=== PATIENT | female | born 1970 | race Caucasian/White ===

== ENCOUNTER → 2017-07-05 | Outpatient (CLI) | payer BC ==
--- NOTE | 2017-07-05 18:20 | RAD ---
CT HEAD WO CONTRAST History: Trauma to head today, hit by tree branch, headache, history of traumatic brain injury in 2004 Comparison: None. Technique: Noncontrast [address] images were acquired from the skull base to the vertex. Exposure: One or more of the following individualized dose reduction techniques were utilized for this examination: 1. Automated exposure control 2. Adjustment of the mA and/or kV according to patient size 3. Use of iterative reconstruction technique. Findings: No acute extra-axial or parenchymal hemorrhage is identified. There is no significant intra-axial mass effect, midline shift, or extra-axial fluid collection. The christensen-white differentiation of the major vascular territories is preserved. The ventricles, sulci, and cisterns are within normal limits in size and configuration. The mastoid air cells and the visualized paranasal sinuses are aerated. No acute calvarial abnormality is identified. Impression: 1. No acute intracranial abnormality is identified. Electronically signed by: Pee Vasquez MD (07/05/2017 6:16 PM) [facility]
== END | disposition home or self-care (01) ==
LOC: RAD 17:44
PROVIDERS: ATTEND Family Medicine
DX: S09.90XA Unspecified injury of head, initial encounter (principal); R51 Headache; Z87.820 Personal history of traumatic brain injury; X58.XXXA Exposure to other specified factors, initial encounter; Y93.89 Activity, other specified; Y92.89 Other specified places as the place of occurrence of the external cause; Y99.8 Other external cause status
CPT/HCPCS: 70450

== ENCOUNTER → 2017-09-04 | Outpatient (CLI) | payer BC ==
--- NOTE | 2017-09-04 15:00 | RAD ---
3 views left foot 09/04/2017 2:00 AM Indication: LEFT FOOT PAIN ,STEPPED ON BY A HORSE 08/31/17 Comparison: None Findings: There is no fracture or dislocation identified. Articular surfaces are uninterrupted. Soft tissues are unremarkable. Impression: No evidence of acute osseous abnormality
== END | disposition home or self-care (01) ==
LOC: DXRADRC 14:33
PROVIDERS: ATTEND Physician Assistant
DX: M79.672 Pain in left foot (principal); M54.17 Radiculopathy, lumbosacral region; M46.1 Sacroiliitis, not elsewhere classified
CPT/HCPCS: 73630

== ENCOUNTER 2018-08-23 21:22 | Emergency (ER) | payer BC ==
[~2018-08-23] VITALS: Ht 162.6 cm; Wt 75.7 kg
--- NOTE | 2018-08-23 21:25 | ED.ADGEN ---
Past History Past Medical History: Anemia, Other Adult General Chief Complaint Chief Complaint ".. My dog Everett bit my butt about two weeks ago.. ".." I was breaking up the dog fight and he bit me on my butt...".. " Blue and bruise has improved... but I still had this lump.... and Dr. Dillard tried to drain it with a knife.. and said he could not get any thing.. and then sutured it back up... but area... has gotten more sore...".. " the dog is fine and has had all his shots... " HPI HPI Patient is a 48 year old female who presents with above hx and complaints [place] dog bite to right butt 2 weeks ago. The dog "Everett " is her dog and is up to date with shots. Bite occurred 2 weeks ago when she was breaking up a dog fight. Pt. has healing area of ecchymosis 16 x16 cm and old bite zita. Has a central area that is very fluctuant and tender. Has new sutures were attempted drainage occurred. The tender fluctuating area is in the center of the ecchymosis area. No striations. Area is slightly warm to touch and warmer than surrounding tissue. Patient did receive a shot of Rocephin when at Dr. Felder's office. Does have a follow-up with Dr. Ron on Sunday. Pt has no hx of immunosuppression. Dog is healthy and up to date with vaccination.s Pt.is reported up to date with vaccinations. Review of Systems Review of Systems Constitutional: Denies fever or chills [] Eyes: Denies change in visual acuity, redness, or eye pain [] HENT: Denies nasal congestion or sore throat [] Respiratory: Denies cough or shortness of breath [] Cardiovascular: No additional information not addressed in HPI [] GI: Denies abdominal pain, nausea, vomiting, bloody stools or diarrhea [] : Denies dysuria or hematuria [] Musculoskeletal: Denies back pain or joint pain [] Integument: Denies rash or skin lesions [] Except Hematoma Rt. buttock Neurologic: Denies headache, focal weakness or sensory changes [] Endocrine: Denies polyuria or polydipsia [] All other systems were reviewed and found to be within normal limits, except as documented in this note. Family History Family History Non- contributory Current Medications Current Medications Current Medications Medications (Trade) Dose Ordered Sig/Corinne Start Time Stop Time Status Last Admin Dose Admin Ceftriaxone Sodium (Rocephin Im) 1 gm 1X ONCE 08/23/18 22:30 08/23/18 22:31 DC 08/23/18 22:50 1 GM Ketorolac Tromethamine (Toradol Im) 60 mg 1X ONCE 08/23/18 23:00 08/23/18 23:01 DC 08/23/18 22:51 60 MG Lactated Ringer's 1,000 ml @ 1,000 mls/hr Q1H 08/23/18 22:00 08/23/18 22:59 DC 08/23/18 22:53 1,000 MLS/HR Lidocaine HCl 20 ml 1X ONCE 08/23/18 22:00 08/23/18 22:01 DC Metronidazole 100 ml @ 100 mls/hr 1X ONCE 08/23/18 22:30 08/23/18 23:29 DC 08/23/18 22:52 100 MLS/HR Morphine Sulfate (Morphine 10mg Syringe) 10 mg 1X ONCE 08/23/18 23:00 08/23/18 23:01 DC 08/23/18 22:54 10 MG Ondansetron HCl (Zofran) 8 mg 1X ONCE 08/23/18 23:45 08/24/18 00:13 DC 08/23/18 23:47 8 MG Tetanus/ Diphtheria Toxoids Adsorbed (Tenivac Vial) 0.5 ml ONCE ONCE 08/23/18 23:00 08/23/18 23:01 DC Allergies Allergies Allergies Coded Allergies Type Severity Reaction Last Updated Verified No Known Drug Allergies 08/23/18 No Physical Exam Physical Exam Constitutional: Well developed, well nourished, no acute distress, non-toxic appearance. [] HENT: Normocephalic, atraumatic, bilateral external ears normal, oropharynx moist, no oral exudates, nose normal. [] Eyes: PERRLA, EOMI, conjunctiva normal, no discharge. [] Neck: Normal range of motion, no tenderness, supple, no stridor. [] Cardiovascular:Heart rate regular rhythm, no murmur [] Lungs & Thorax: Bilateral breath sounds clear to auscultation [] Abdomen: Bowel sounds normal, soft, no tenderness, no masses, no pulsatile masses. [] Skin: Warm, dry, no erythema, no rash. [] Dog bite Rt. gluteal area. Hematoma Back: No tenderness, no CVA tenderness. [] Extremities: No tenderness, no cyanosis, no clubbing, ROM intact, no edema. [] Rt. gluteal hematoma. Neurologic: Alert and oriented X 3, normal motor function, normal sensory function, no focal deficits noted. [] Psychologic: Affect normal, judgement normal, mood normal. [] Current Patient Data Vital Signs Vital Signs Date Time Temp Pulse Resp B/P (MAP) Pulse Ox O2 Delivery O2 Flow Rate FiO2 08/23/18 21:28 98.0 73 18 100 Room Air Lab Results Laboratory Tests Test 08/23/18 22:03 White Blood Count 9.8 x10^3/uL (4.0-11.0) Red Blood Count 4.33 x10^6/uL (3.50-5.40) Hemoglobin 10.2 g/dL (12.0-15.5) L Hematocrit 32.3 % (36.0-47.0) L Mean Corpuscular Volume 75 fL (79-100) L Mean Corpuscular Hemoglobin 23 pg (25-35) L Mean Corpuscular Hemoglobin Concent 32 g/dL (31-37) Red Cell Distribution Width 16.5 % (11.5-14.5) H Platelet Count 280 x10^3/uL (140-400) Neutrophils (%) (Auto) 59 % (31-73) Lymphocytes (%) (Auto) 27 % (24-48) Monocytes (%) (Auto) 8 % (0-9) Eosinophils (%) (Auto) 5 % (0-3) H Basophils (%) (Auto) 1 % (0-3) Neutrophils # (Auto) 5.7 x10^3uL (1.8-7.7) Lymphocytes # (Auto) 2.7 x10^3/uL (1.0-4.8) Monocytes # (Auto) 0.8 x10^3/uL (0.0-1.1) Eosinophils # (Auto) 0.5 x10^3/uL (0.0-0.7) Basophils # (Auto) 0.1 x10^3/uL (0.0-0.2) Sodium Level 141 mmol/L (136-145) Potassium Level 3.5 mmol/L (3.5-5.1) Chloride Level 104 mmol/L (98-107) Carbon Dioxide Level 29 mmol/L (21-32) Anion Gap 8 (6-14) Blood Urea Nitrogen 18 mg/dL (7-20) Creatinine 0.6 mg/dL (0.6-1.0) Estimated GFR (Cockcroft-Gault) 107.6 Glucose Level 74 mg/dL (70-99) Calcium Level 8.8 mg/dL (8.5-10.1) Total Bilirubin 0.2 mg/dL (0.2-1.0) Direct Bilirubin < 0.1 mg/dL (0.0-0.2) Aspartate Amino Transferase (AST) 16 U/L (15-37) Alanine Aminotransferase (ALT) 18 U/L (14-59) Alkaline Phosphatase 51 U/L (46-116) Creatine Kinase 109 U/L (26-192) Total Protein 7.8 g/dL (6.4-8.2) Albumin 3.8 g/dL (3.4-5.0) EKG EKG [] Radiology/Procedures Radiology/Procedures [] Course & Med Decision Making Course & Med Decision Making Pertinent Labs and Imaging studies reviewed. (See chart for details). Procedure note: Aspiration of hematoma. - Area cleaned with Alcohol. Lidocaine SQ injection at site of aspiration- Aspirated 50 cc of old blood. Sent for cultures and gram stain. Pt. to continue antibiotic Augmentin and Flagyl. Keep follow up. Follow up cultures. Take Augmentin 875 twice a day and Flagyl 500 three times a day. Follow up cultures. Vicoprofen for marked discomfort. If re current hematoma, site may need open drainage. Keep follow up with Dr. Ron. Take MV with Fe- for anemia. Return if any concerns. [] Final Impression Final Impression 1. Dog bite[] Rt.-butt two weeks ago 2. Hematoma 3. Anemia- Microcytic Hypochromic 4. Back pain. Dragon Disclaimer Dragon Disclaimer This electronic medical record was generated, in whole or in part, using a voice recognition dictation system. ANSELMO GALLAGHER MD Aug 23, 2018 21:25
[2018-08-23] MEDS ORDERED: IV RINGERS SOLUTION,LACTATED 1,000 ML IV SCH (22:00)
[2018-08-23] MEDS ORDERED: LIDOCAINE 2% 20 ML VIAL. IJ ONE (22:00)
[2018-08-23 22:17] LABS: BASO # 0.1 x10^3/uL (0.0-0.2); BASO % 1 % (0-3); EOS # 0.5 x10^3/uL (0.0-0.7); EOS % 5 % (0-3); HEMATOCRIT 32.3 % (36.0-47.0); HEMOGLOBIN 10.2 g/dL (12.0-15.5); LYMPH # 2.7 x10^3/uL (1.0-4.8); LYMPH % 27 % (24-48); MEAN CORPUSCULAR HEMOGLOBIN 23 pg (25-35); MEAN CORPUSCULAR HGB CONC 32 g/dL (31-37); MEAN CORPUSCULAR VOLUME 75 fL (79-100); MONO # 0.8 x10^3/uL (0.0-1.1); MONO % 8 % (0-9); NEUT # 5.7 x10^3uL (1.8-7.7); NEUT % 59 % (31-73); PLATELET COUNT 280 x10^3/uL (140-400); RED BLOOD COUNT 4.33 x10^6/uL (3.50-5.40); RED CELL DISTRIBUTION WIDTH 16.5 % (11.5-14.5); WHITE BLOOD COUNT 9.8 x10^3/uL (4.0-11.0)
[2018-08-23] MEDS ORDERED: cefTRIAXone IM 1 GM VIAL IM ONE (22:30)
[2018-08-23 22:31] LABS: ALBUMIN 3.8 g/dL (3.4-5.0); ALK PHOS 51 U/L (46-116); ALT (SGPT) 18 U/L (14-59); ANION GAP 8 (6-14); AST (SGOT) 16 U/L (15-37); BLOOD UREA NITROGEN 18 mg/dL (7-20); CALCIUM 8.8 mg/dL (8.5-10.1); CARBON DIOXIDE 29 mmol/L (21-32); CHLORIDE 104 mmol/L (98-107); CREATININE 0.6 mg/dL (0.6-1.0); GFR 107.6; GLUCOSE 74 mg/dL (70-99); POTASSIUM 3.5 mmol/L (3.5-5.1); SODIUM 141 mmol/L (136-145); TOTAL BILIRUBIN 0.2 mg/dL (0.2-1.0); TOTAL PROTEIN 7.8 g/dL (6.4-8.2)
[2018-08-23 22:32] LABS: DIRECT BILIRUBIN < 0.1 mg/dL (0.0-0.2)
[2018-08-23] MEDS ORDERED: TETANUS AND DIPHTHERIA TOX/PF 0.5 ML VIAL. VAX IM ONE (23:00)
[2018-08-23] MEDS ORDERED: KETOROLAC 60 MG/2 ML VIAL. IM ONE (23:00)
[2018-08-23] MEDS ORDERED: MORPHINE SULFATE 10 MG/ML SYRINGE. SQ ONE (23:00)
[2018-08-23] MEDS ORDERED: ONDANSETRON PF 4 MG/2 ML VIAL. ONE (23:03)
[2018-08-23] MEDS ORDERED: ONDA8TAB12 PO (23:15)
[2018-08-23] MEDS ORDERED: HYDR-79 PO (23:15)
[2018-08-23] MEDS ORDERED: AMOX1TAB61 PO (23:15)
[2018-08-23] MEDS ORDERED: METR500T PO (23:15)
[2018-08-23 23:35] VITALS: BP 119/60
[2018-08-23] MEDS ORDERED: ONDANSETRON PF 4 MG/2 ML VIAL. IV ONE (23:45)
== END 2018-08-24 00:10 | disposition home or self-care (01) ==
LOC: ER 21:22
DX: S31.050A Open bite of lower back and pelvis without penetration into retroperitoneum, initial encounter (principal); S30.0XXA Contusion of lower back and pelvis, initial encounter; D50.9 Iron deficiency anemia, unspecified; Z86.2 Personal history of diseases of the blood and blood-forming organs and certain disorders involving the immune mechanism; W54.0XXA Bitten by dog, initial encounter; Y93.89 Activity, other specified; Y92.89 Other specified places as the place of occurrence of the external cause; Y99.8 Other external cause status
CPT/HCPCS: 10160; 36415; 80048; 80076; 82550; 85025; 87040; 87070; 96365; 96372; 96375; 99284; J0696; J1885; J2270; J2405; J3490; J7120

== ENCOUNTER 2020-09-03 17:37 | Emergency (ER) | payer BC ==
[~2020-09-03] VITALS: Ht 162.6 cm; Wt 75.9 kg
[~2020-09-03 17:37] MED LIST: AMOX1TAB61 PO; HYDR-1179 PO; METR500T PO; ONDA8TAB12 PO
[2020-09-03] MEDS: HYDROcodone/APAP 5/325MG 1 TAB TABLET PO ONE (18:30)
[2020-09-03] MEDS: AMOXICILLIN/K CLAV 875/125MG TABLET. PO ONE (18:57)
[2020-09-03] MEDS ORDERED: HYDR-3165 PO (19:00)
[2020-09-03] MEDS ORDERED: AMOX1TAB61 PO (19:00)
[2020-09-03] MEDS ORDERED: PROM25TA10 PO (19:01)
--- NOTE | 2020-09-03 19:01 | PHYS DOC ---
Past History Past Medical History: Anemia, Migraines, Other Past Surgical History: Other Alcohol Use: Occasionally Drug Use: None General Adult EDM: Chief Complaint: ANIMAL BITE HPI: HPI: 42-year-old female presents with dog bite on the left side of her face. This was caused by her own domestic dog. She is more than 1 dog and they got in a fight and she attempted to break it up. 1 of the dogs jumped up at her face and caused a laceration of the left side of her face. Her tetanus was updated 1 year ago. She denies any other injuries or complaints at this time. She does have some pain in her left ear just above the laceration. Review of Systems: Review of Systems: Constitutional: Denies fever or chills Eyes: Denies change in visual acuity HENT: Denies nasal congestion or sore throat Respiratory: Denies cough or shortness of breath Cardiovascular: Denies chest pain or edema GI: Denies abdominal pain, nausea, vomiting, bloody stools or diarrhea : Denies dysuria Musculoskeletal: Denies back pain or joint pain Integument: Laceration left face Neurologic: Denies headache, focal weakness or sensory changes Endocrine: Denies polyuria or polydipsia Lymphatic: Denies swollen glands Psychiatric: Denies depression or anxiety Heart Score: Risk Factors: Risk Factors: DM, Current or recent (<one month) smoker, HTN, HLP, family history of CAD, obesity. Risk Scores: Score 0 - 3: 2.5% MACE over next 6 weeks - Discharge Home Score 4 - 6: 20.3% MACE over next 6 weeks - Admit for Clinical Observation Score 7 - 10: 72.7% MACE over next 6 weeks - Early Invasive Strategies Current Medications: Current Meds: Current Medications Medications (Trade) Dose Ordered Sig/Corinne Start Time Stop Time Status Last Admin Dose Admin Acetaminophen/ Hydrocodone Bitart (Lortab 5/325) 1 tab 1X ONCE 09/03/20 18:30 09/03/20 18:31 DC Amoxicillin/ Clavulanate Potassium (Augmentin 875/ 125mg) 1 tab 1X ONCE 09/03/20 19:00 09/03/20 19:01 Allergies: Allergies: Allergies Coded Allergies Type Severity Reaction Last Updated Verified No Known Drug Allergies 08/23/18 No Physical Exam: PE: Constitutional: Well developed, well nourished, no acute distress, non-toxic appearance. [] HENT: Normocephalic, atraumatic, bilateral external ears normal, oropharynx moist, no oral exudates, nose normal. Left tympanic membrane normal. Mild swelling in the preauricular area. [] Eyes: PERRLA, EOMI, conjunctiva normal, no discharge. [] Neck: Normal range of motion, no tenderness, supple, no stridor. [] Cardiovascular:Heart rate regular rhythm, no murmur [] Lungs & Thorax: Bilateral breath sounds clear to auscultation [] Abdomen: Bowel sounds normal, soft, no tenderness, no masses, no pulsatile masses. [] Skin: 2.5 cm V-shaped laceration of the left face [] Back: No tenderness, no CVA tenderness. [] Extremities: No tenderness, no cyanosis, no clubbing, ROM intact, no edema. [] Neurologic: Alert and oriented X 3, normal motor function, normal sensory function, no focal deficits noted. [] Psychologic: Affect normal, judgement normal, mood normal. [] Current Patient Data: Vital Signs: Vital Signs Date Time Temp Pulse Resp B/P (MAP) Pulse Ox O2 Delivery O2 Flow Rate FiO2 09/03/20 17:54 97.9 99 24 119/60 (79) 100 EKG: EKG: [] Radiology/Procedures: Radiology/Procedures: [] Course & Med Decision Making: Course & Med Decision Making Pertinent Labs and Imaging studies reviewed. (See chart for details) The patient has a 2.5 cm V-shaped laceration of the left face. I do not believe sutures are indicated due to the fact that it is a dog bite. The skin may or may not survive anyway due to its V shape. I have placed Steri-Strips over the area for loose approximation. Will cover the patient with Augmentin antibiotics. We will give the first dose in the emergency room. I will also discharge her with a prescription for Diablo for her ear pain. I do not see any significant damage to the ear or immediate surrounding area. [] Dragon Disclaimer: Dragon Disclaimer: This electronic medical record was generated, in whole or in part, using a voice recognition dictation system. Departure Departure: Impression: Primary Impression: Dog bite of face Disposition: 01 DC HOME SELF CARE/HOMELESS Condition: STABLE Referrals: ANNETTE GRANDE DO (PCP) Patient Instructions: Animal Bite, [id number] Scripts Promethazine Hcl (PROMETHAZINE HCL) 25 Mg Tablet 1 TAB PO PRN Q6HRS PRN for VOMITING, #20 TAB Prov: CHULA OSEGUERA DO 09/03/20 Amoxicillin/Potassium Clav (AUGMENTIN 875-125 TABLET) 1 Each Tablet 1 TAB PO BID for dog bite for 7 Days, #14 TAB 0 Refills Prov: CHULA OSEGUERA DO 09/03/20 Hydrocodone Bit/Acetaminophen (NORCO 5-325 TABLET) 1 Each Tablet 1 TAB PO PRN Q6HRS PRN for PAIN, #10 TAB 0 Refills Prov: CHULA OSEGUERA DO 09/03/20 CHULA OSEGUERA DO Sep 03, 2020 19:01
[2020-09-03] MEDS: PROMETHAZINE 25 MG TABLET. PO ONE (19:04)
[2020-09-03 20:05] VITALS: BP 140/88
[2020-09-03] MEDS ORDERED: LIDOCAINE 1%/EPI 1:100,000 20 ML VIAL. ONE (20:07)
== END 2020-09-03 19:09 | disposition home or self-care (01) ==
LOC: ER 17:37
DX: S01.81XA Laceration without foreign body of other part of head, initial encounter (principal); G43.909 Migraine, unspecified, not intractable, without status migrainosus; Z86.2 Personal history of diseases of the blood and blood-forming organs and certain disorders involving the immune mechanism; W54.0XXA Bitten by dog, initial encounter; Y93.89 Activity, other specified; Y92.89 Other specified places as the place of occurrence of the external cause; Y99.8 Other external cause status
CPT/HCPCS: 99284; Q0169

== ENCOUNTER 2020-09-03 20:03 | Emergency (ER) | payer BC ==
[~2020-09-03] VITALS: Ht 162.6 cm; Wt 75.9 kg
[~2020-09-03 20:03] MED LIST changes: +HYDR-3165 PO; +PROM25TA10 PO
[2020-09-03 20:05] VITALS: BP 140/88
[2020-09-03] MEDS: LIDOCAINE 1%/EPI 1:100,000 20 ML VIAL. IJ ONE (20:30)
--- NOTE | 2020-09-03 20:34 | PHYS DOC ---
Past History Past Medical History: Anemia, Migraines, Other Past Surgical History: Other Alcohol Use: Occasionally Drug Use: None General Adult EDM: Chief Complaint: ANIMAL BITE HPI: HPI: The patient had return the emergency room because her wound started to bleed. See my previous note from today for more details. This is a continuation of her previous visit. Review of Systems: Review of Systems: See previous note same date Heart Score: Risk Factors: Risk Factors: DM, Current or recent (<one month) smoker, HTN, HLP, family history of CAD, obesity. Risk Scores: Score 0 - 3: 2.5% MACE over next 6 weeks - Discharge Home Score 4 - 6: 20.3% MACE over next 6 weeks - Admit for Clinical Observation Score 7 - 10: 72.7% MACE over next 6 weeks - Early Invasive Strategies Current Medications: Current Meds: Current Medications Medications (Trade) Dose Ordered Sig/Corinne Start Time Stop Time Status Last Admin Dose Admin Lidocaine/ Epinephrine (Xylocaine 1%-Epi 1:100,000) 20 ml 1X ONCE 09/03/20 20:15 09/03/20 20:16 DC 09/03/20 20:30 20 ML Allergies: Allergies: Allergies Coded Allergies Type Severity Reaction Last Updated Verified No Known Drug Allergies 08/23/18 No Physical Exam: PE: See previous note same date EKG: EKG: [] Radiology/Procedures: Radiology/Procedures: [] Course & Med Decision Making: Course & Med Decision Making Pertinent Labs and Imaging studies reviewed. (See chart for details) The patient's wound continued to bleed despite the Steri-Strip after she was trying to drive home. It was bleeding a decent amount so she came back for further management. This is a continuation of her previous visit. See laceration note for more details. [] Dragon Disclaimer: Dragon Disclaimer: This electronic medical record was generated, in whole or in part, using a voice recognition dictation system. Laceration Repair Lac Repair Indication: [] 2 and half centimeter V-shaped laceration of the left face Procedure: The patient gave me verbal permission for suture repair of her V- shaped laceration from a dog bite. The wound was previously cleaned with normal saline. I removed her Steri-Strips. I anesthetized the wound with 1% lidocaine with epinephrine. A total of 1.5 cc was used. After good anesthesia was achieved, a 3 loose sutures of 6-0 Ethilon suture in an interrupted fashion. This gave much better skin approximation and control bleeding. A clean dressing was applied over the wound. Total repaired wound length: 2.5 cm. Other Items: None The patient tolerated the procedure well. Complications: None Departure Departure: Impression: Primary Impression: Dog bite of face Disposition: 01 DC HOME SELF CARE/HOMELESS Condition: STABLE Referrals: ANNETTE GRANDE DO (PCP) CHULA OSEGUERA DO Sep 03, 2020 20:34
== END 2020-09-03 20:39 | disposition home or self-care (01) ==
LOC: ER 20:03
DX: S01.81XD Laceration without foreign body of other part of head, subsequent encounter (principal); G43.909 Migraine, unspecified, not intractable, without status migrainosus; Z86.2 Personal history of diseases of the blood and blood-forming organs and certain disorders involving the immune mechanism; W54.0XXD Bitten by dog, subsequent encounter
CPT/HCPCS: 12011; 99282

== ENCOUNTER 2021-01-25 14:07 | Emergency (ER) | payer BC ==
[~2021-01-25] VITALS: Ht 162.6 cm; Wt 75.9 kg
[2021-01-25 14:14] VITALS: BP 114/69
== END 2021-01-25 14:30 | disposition left against medical advice (07) ==
LOC: ER 14:07
DX: R51.9 Headache, unspecified (principal); M54.2 Cervicalgia; R11.0 Nausea; Z53.21 Procedure and treatment not carried out due to patient leaving prior to being seen by health care provider

== ENCOUNTER → 2021-01-28 | Outpatient (CLI) | payer BC ==
[2021-01-25 14:14] VITALS: BP 114/69
--- NOTE | 2021-01-28 16:05 | RAD ---
EXAM: Cervical spine, 3 views. HISTORY: Pain. COMPARISON: None. FINDINGS: 3 views of the cervical spine are obtained. There is mild cervical kyphosis. There is degen erative endplate remodeling with disc space narrowing and osteophytosis at C4-C5 and C5-C6. There is facet arthropathy at these levels. IMPRESSION: Degenerative change primarily at C4-C5 and C5-C6. No acute osseous finding. Electronically signed by: Alison Jhaveri MD (01/28/2021 4:02 PM) [id number]
== END ==
LOC: PMG 15:39
PROVIDERS: ATTEND Physician Assistant
DX: M47.812 Spondylosis without myelopathy or radiculopathy, cervical region (principal)
CPT/HCPCS: 72040

== ENCOUNTER → 2021-05-12 | Outpatient (CLI) | payer BC ==
--- NOTE | 2021-05-12 15:18 | RAD ---
EXAM: CT head without contrast INDICATION: Fell and hit head COMPARISON: None TECHNIQUE: Axial CT imaging through the head without intravenous contrast. One or more of the following individualized dose reduction techniques were utilized for this examinat ion: 1. Automated exposure control 2. Adjustment of the mA and/or kV according to patient size 3. Use of iterative reconstruction technique. FINDINGS: The ventricles and sulci are normal. Haskins-white matter differentiation is maintained. There is no in tracranial hemorrhage, acute infarct, or mass lesion. Basal cisterns are clear. The skull and scalp a re intact. Paranasal sinuses and mastoid air cells are clear. Globes and orbits are intact. IMPRESSION: No acute intracranial abnormality. Electronically signed by: Noemi Arita MD (05/12/2021 3:16 PM) [id number]
== END ==
LOC: PMG 14:54
PROVIDERS: ATTEND Physician Assistant
DX: S09.90XA Unspecified injury of head, initial encounter (principal); G44.319 Acute post-traumatic headache, not intractable; X58.XXXA Exposure to other specified factors, initial encounter; Y92.89 Other specified places as the place of occurrence of the external cause; Y93.89 Activity, other specified; Y99.8 Other external cause status
CPT/HCPCS: 70450

== ENCOUNTER 2022-03-30 14:06 | Emergency (ER) | payer BC ==
[~2022-03-30] VITALS: Ht 162.6 cm; Wt 72.1 kg
[2022-03-30] MEDS ORDERED: IV NORMAL SALINE 1,000ML 1,000 ML IV ONE (14:30)
[2022-03-30] MEDS ORDERED: ONDANSETRON PF 4 MG/2 ML VIAL. IVP ONE (14:30)
--- NOTE | 2022-03-30 14:30 | PHYS DOC ---
Past History Past Medical History: Anemia, Migraines (LOLA BROWN APRN) Past Surgical History: No Surgical History (LOLA BROWN APRN) Alcohol Use: Occasionally Drug Use: None (LOLA BROWN APRN) General Adult EDM: Chief Complaint: ABDOMINAL PAIN HPI: HPI: Patient is a 51-year-old female who presents to the emergency department for left lower abdomen/groin pain that is been intermittent x1 month. Patient rep orts that she has a left femoral hernia and has an appointment on Sunday to meet with the general surgeon at [facility]. Patient reports the pain got worse after she was constipated and had a bowel movement today. She rates her pain 10 out of 10. No treatment prior to arrival. Patient reports nausea with 1 episode of vomiting. She denies fevers, diarrhea, urinary complaints. Only medical hx is anxiety and depression. (LOLA BROWN APRN) Review of Systems: Review of Systems: Constitutional: see HPI GI: see HPI : see HPI Psychiatric: see HPI (LOLA BROWN APRN) Allergies: Allergies: Allergies Coded Allergies Type Severity Reaction Last Updated Verified mirtazapine Allergy Unknown 03/30/22 Yes (LOLA BROWN APRN) Physical Exam: PE: Constitutional: Well developed, well nourished, no acute distress, non-toxic appearance. [] HENT: Normocephalic, atraumatic, bilateral external ears normal, oropharynx moist, no oral exudates, nose normal. [] Eyes: PERRL EOMI, conjunctiva normal, no discharge. [] Neck: Normal range of motion, no stridor Cardiovascular:Heart rate regular rhythm, no murmur [] Lungs & Thorax: Bilateral breath sounds clear to auscultation [] Abdomen: Bowel sounds normal, soft, L. groin tenderness with palpation, no abdominal rigidity, negative murphys sign, no masses, no pulsatile masses. [] Skin: Warm, dry, no erythema, no rash. [] Back: No tenderness, no CVA tenderness. [] Extremities: No tenderness, no cyanosis, no clubbing, ROM intact, no edema. [] Neurologic: Alert and oriented X 3, normal motor function, normal sensory function, no focal deficits noted. [] Psychologic: Affect normal, judgement normal, mood normal. [] (STEPHANIE,LOLA L TECHNICAL SALES SUPPORT MANAGER) Current Patient Data: Labs: Laboratory Tests Test 03/30/22 14:37 03/30/22 14:39 White Blood Count 9.0 x10^3/uL Red Blood Count 4.49 x10^6/uL Hemoglobin 9.0 g/dL Hematocrit 30.3 % Mean Corpuscular Volume 67 fL Mean Corpuscular Hemoglobin 20 pg Mean Corpuscular Hemoglobin Concent 30 g/dL Red Cell Distribution Width 17.0 % Platelet Count 267 x10^3/uL Neutrophils (%) (Auto) 61 % Lymphocytes (%) (Auto) 27 % Monocytes (%) (Auto) 8 % Eosinophils (%) (Auto) 3 % Basophils (%) (Auto) 1 % Neutrophils # (Auto) 5.5 x10^3uL Lymphocytes # (Auto) 2.4 x10^3/uL Monocytes # (Auto) 0.7 x10^3/uL Eosinophils # (Auto) 0.3 x10^3/uL Basophils # (Auto) 0.1 x10^3/uL Sodium Level 137 mmol/L Potassium Level 3.9 mmol/L Chloride Level 102 mmol/L Carbon Dioxide Level 26 mmol/L Anion Gap 9 Blood Urea Nitrogen 27 mg/dL Creatinine 0.7 mg/dL Estimated GFR (Cockcroft-Gault) 88.9 BUN/Creatinine Ratio 39 Glucose Level 133 mg/dL Calcium Level 8.8 mg/dL Total Bilirubin 0.4 mg/dL Aspartate Amino Transf (AST/SGOT) 13 U/L Alanine Aminotransferase (ALT/SGPT) 22 U/L Alkaline Phosphatase 48 U/L Total Protein 7.4 g/dL Albumin 4.0 g/dL Albumin/Globulin Ratio 1.2 Lipase 128 U/L Urine Collection Type Unknown Urine Color Yellow Urine Clarity Clear Urine pH 5.5 Urine Specific [place] >=1.030 Urine Protein Neg Urine Glucose (UA) Neg mg/dL Urine Ketones (Stick) Neg mg/dL Urine Blood Trace Urine Nitrite Neg Urine Bilirubin Neg Urine Urobilinogen Dipstick 0.2 mg/dL Urine Leukocyte Esterase Neg Urine RBC Occ /HPF Urine WBC Occ /HPF Urine Squamous Epithelial Cells Few /LPF Urine Bacteria Few /HPF Urine Mucus Mod /LPF Current Medications Medications (Trade) Dose Ordered Sig/Corinne Route PRN Reason Start Time Stop Time Status Last Admin Dose Admin Sodium Chloride 1,000 ml @ 1,000 mls/hr 1X ONCE IV 03/30/22 14:30 03/30/22 15:29 DC 03/30/22 14:43 Ondansetron HCl (Zofran) 4 mg 1X ONCE IVP 03/30/22 14:30 03/30/22 14:31 DC 03/30/22 14:43 Fentanyl Citrate (Fentanyl 2ml Vial) 50 mcg 1X ONCE IVP 03/30/22 14:30 03/30/22 14:31 DC 03/30/22 14:43 (LOLA BROWN APRN) EKG: EKG: [] (LOLA BROWN APRN) Radiology/Procedures: Radiology/Procedures: []PROCEDURE: CT ABDOMEN PELVIS WO CONTRAST EXAMINATION: CT ABDOMEN+PELVIS WO. Technique: Axial images with coronal and sagittal reconstructions are performed of abdomen and pelvis without contrast. One or more of the following radiation dose reduction techniques was used: automated exposure control, adjustment of mA and/or KV according to patient size, and/or utilization of iterative reconstruction technique. HISTORY: 51 years Female Reason: l. lower abdominal pain, femoral hernia COMPARISON: None. FINDINGS: The lung bases appear clear. The liver, gallbladder, the spleen, the adrenal glands, and the pancreas appear unremarkable for an unenhanced exam. The kidneys demonstrate no hydronephrosis. No urinary tract stones are seen. There is no free fluid or fluid collection in the abdomen or pelvis. There is a mukpx-zv-aamiqhcb amount of fecal material seen in the colon. No dilated bowel loops to suggest obstruction. The appendix appear unremarkable. The abdominal aorta is normal in caliber. No para-aortic significantly enlarged lymph nodes seen. The urinary bladder is nearly empty with no definite abnormality. The uterus and adnexa appear grossly unremarkable. No abdominal wall or femoral hernia is identified. The osseous structures demonstrate grade 1 spondylolisthesis of L4 over L5. There is prominent degenerative changes at the lower lumbar spine facet joints. IMPRESSION: Grade 1 spondylolisthesis of L4 over L5. No acute process. Electronically signed by: Yessica Remy MD (03/30/2022 3:43 PM) [id number] DICTATED AND SIGNED BY: YESSICA REMY MD DATE: 03/30/22 1533 CC: JOANA TRAN DO; MADI GREEN PA; LOLA BROWN APRN ~ (LOLA BROWN APRN) Heart Score: C/O Chest Pain: N/A Risk Factors: Risk Factors: DM, Current or recent (<one month) smoker, HTN, HLP, family history of CAD, obesity. Risk Scores: Score 0 - 3: 2.5% MACE over next 6 weeks - Discharge Home Score 4 - 6: 20.3% MACE over next 6 weeks - Admit for Clinical Observation Score 7 - 10: 72.7% MACE over next 6 weeks - Early Invasive Strategies (LOLA BROWN APRN) Course & Med Decision Making: Course & Med Decision Making Pertinent Labs and Imaging studies reviewed. (See chart for details) Patient presents to the emergency department for left lower quadrant/left groin pain intermittent x1 month. Patient reports she has a left femoral hernia she believes that that is the cause of her pain. Work-up in the ER consisted of blood work, urinalysis and CT imaging of abdomen felt. Patient treated with IV fluids, nausea and pain medication. She reports improvement in her symptoms following treatment in the ER. Patient's blood work is unremarkable, her urinalysis is positive for blood, white blood cells and bacteria therefore she will be treated with an antibiotic for urinary tract infection. CT scan of abdomen and pelvis did not show any acute findings and she has no identifiable femoral hernia. Patient advised to continue to follow-up with a general surgeon at [facility]. She will be discharged home with pain medication. Her vital signs are stable she is in no acute distress. (LOLA BROWN APRN) Dragon Disclaimer: Dragon Disclaimer: This electronic medical record was generated, in whole or in part, using a voice recognition dictation system. (LOLA BROWN APRN) Departure Departure: Impression: Primary Impression: Urinary tract infection Qualified Codes: N30.01 - Acute cystitis with hematuria Disposition: HOME / SELF CARE / HOMELESS Condition: GOOD Referrals: MADI GREEN (PCP) Patient Instructions: Abdominal Pain (Nonspecific), Urinary Tract Infection Additional Instructions: You are seen in the emergency department today for abdominal pain. You are noted to have a urinary tract infection which will be treated with an antibiotic. Please start and finish the antibiotic completely. You are also being discharged home with pain medication. This medication may cause sedation so do not take need to be alert, driving a vehicle or with alcohol. Increase your fluids and avoid bladder irritants like caffeine, sugary beverages and alcohol. Please follow-up with your primary care provider tomorrow regarding your ER visit. Please continue to follow-up with a general surgeon at [facility]. Return to the emergency department or go to [facility] with have surgical coverage if you develop worsening of your abdominal pain, high fevers refractory to treatment, intractable nausea or vomiting, blood in your stools or vomit. Scripts Hydrocodone Bit/Acetaminophen (HYDROCODONE-APAP 5-325 ) 1 Each Tablet 1 TAB PO PRN Q6HRS PRN for PAIN for 2 Days, #8 TAB 0 Refills Prov: LOLA BROWN APRN 03/30/22 Cephalexin (KEFLEX) 500 Mg Capsule 1 CAP PO BID for uti for 7 Days, #14 CAP 0 Refills Prov: LOLA BROWN APRN 03/30/22 Attending Signature I have participated in the care of this patient and I have reviewed and agree with all pertinent clinical information above including history, exam, and recommendations. (JOANA TRAN DO) LOLA BROWN APRN March 30, 2022 14:30 JOANA TRAN DO March 30, 2022 16:07
[2022-03-30 15:10] LABS: BASO # 0.1 x10^3/uL (0.0-0.2); BASO % 1 % (0-3); EOS # 0.3 x10^3/uL (0.0-0.7); EOS % 3 % (0-3); HEMATOCRIT 30.3 % (36.0-47.0); LYMPH # 2.4 x10^3/uL (1.0-4.8); LYMPH % 27 % (24-48); MEAN CORPUSCULAR HEMOGLOBIN 20 pg (25-35); MEAN CORPUSCULAR HGB CONC 30 g/dL (31-37); MEAN CORPUSCULAR VOLUME 67 fL (79-100); MONO # 0.7 x10^3/uL (0.0-1.1); MONO % 8 % (0-9); NEUT # 5.5 x10^3uL (1.8-7.7); NEUT % 61 % (31-73); PLATELET COUNT 267 x10^3/uL (140-400); RED BLOOD COUNT 4.49 x10^6/uL (3.50-5.40)
[2022-03-30 15:18] LABS: CALCIUM 8.8 mg/dL (8.5-10.1); CREATININE 0.7 mg/dL (0.6-1.0); GFR 88.9; POTASSIUM 3.9 mmol/L (3.5-5.1)
[2022-03-30 15:24] LABS: ALBUMIN/GLOBULIN RATIO 1.2 (1.0-1.7); TOTAL BILIRUBIN 0.4 mg/dL (0.2-1.0); TOTAL PROTEIN 7.4 g/dL (6.4-8.2)
[2022-03-30 15:32] LABS: CLARITY,URINE CLEAR; COLOR,URINE YELLOW; GLUCOSE,URINE NEG (NEG); NITRITE,URINE NEG (NEG); UROBILINOGEN,URINE 0.2 mg/dL (0.2 mg/dL)
[2022-03-30 15:33] LABS: BACTERIA,URINE FEW /HPF (0-FEW); RBC,URINE OCC /HPF (0-2); SQUAMOUS EPITHELIAL CELL,UR FEW /LPF; WBC,URINE OCC /HPF (0-4)
--- NOTE | 2022-03-30 15:45 | RAD ---
EXAMINATION: CT ABDOMEN+PELVIS WO. Technique: Axial images with coronal and sagittal reconstructions are performed of abdomen and pelvis without contrast. One or more of the following radiation dose reduction techniques was used: automated exposure control , adjustment of mA and/or KV according to patient size, and/or utilization of iterative reconstructio n technique. HISTORY: 51 years Female Reason: l. lower abdominal pain, femoral hernia COMPARISON: None. FINDINGS: The lung bases appear clear. The liver, gallbladder, the spleen, the adrenal glands, and the pancreas appear unremarkable for an u nenhanced exam. The kidneys demonstrate no hydronephrosis. No urinary tract stones are seen. There is no free fluid or fluid collection in the abdomen or pelvis. There is a eprjl-[id number] tanner unt of fecal material seen in the colon. No dilated bowel loops to suggest obstruction. The appendix appear unremarkable. The abdominal aorta is normal in caliber. No para-aortic significantly enlarged lymph nodes seen. The urinary bladder is nearly empty with no definite abnormality. The uterus and adnexa appear grossl y unremarkable. No abdominal wall or femoral hernia is identified. The osseous structures demonstrate grade 1 spondylolisthesis of L4 over L5. There is prominent degene rative changes at the lower lumbar spine facet joints. IMPRESSION: Grade 1 spondylolisthesis of L4 over L5. No acute process. Electronically signed by: Michael Remy MD (03/30/2022 3:43 PM) [id number]
[2022-03-30] MEDS ORDERED: HYDR-2155 PO (16:00)
[2022-03-30] MEDS ORDERED: MORPHINE SULFATE 2 MG/ML DISP.SYRIN. IV ONE (16:00)
[2022-03-30] MEDS ORDERED: CEPH500C PO (16:00)
[2022-03-30] MEDS ORDERED: ONDA4TAB12 PO (16:12)
[2022-03-30 16:15] VITALS: BP 127/77
[2022-03-30 16:30] LABS: PLT ESTIMATE ADEQUATE (ADEQUATE)
[2022-03-30 16:32] LABS: MICROCYTOSIS MOD
[2022-03-30 16:33] LABS: HYPOCHROMIA MOD
== END 2022-03-30 16:30 | disposition home or self-care (01) ==
LOC: ER 14:06
DX: N30.01 Acute cystitis with hematuria (principal); G43.909 Migraine, unspecified, not intractable, without status migrainosus; Z86.2 Personal history of diseases of the blood and blood-forming organs and certain disorders involving the immune mechanism; Z88.8 Allergy status to other drugs, medicaments and biological substances
CPT/HCPCS: 36415; 74176; 80053; 81001; 83690; 85025; 96361; 96374; 96375; 99284; J2270; J2405; J3010; J7030

== ENCOUNTER → 2022-04-13 | Outpatient (CLI) | payer BC, OTHER ==
[2022-03-30 16:15] VITALS: BP 127/77
[~2022-04-13] MED LIST changes: +CEPH500C PO; +HYDR-2155 PO; +ONDA4TAB12 PO
--- NOTE | 2022-04-13 09:17 | RAD ---
US ABDOMEN OR LOWER BACK LIMITED History:Reason: LLQ ABD PAIN, CONCERN FOR SUBCUTANEOUS MASS / Spl. Instructions: / History: Comparison: CT March 30, 2022 Technique: Sonographic examination of the left lower abdomen Findings: No mass or fluid collection within the left anterior abdominal wall. No evidence of hernia. Bowel gas is noted within the left lower quadrant. Impression: 1. No ultrasound evidence of abnormality within the left lower abdominal wall. Electronically signed by: Duc Rodríguez DO (04/13/2022 9:14 AM) [id number]
== END ==
LOC: US 07:58
PROVIDERS: ATTEND Surgery
DX: R10.32 Left lower quadrant pain (principal)
CPT/HCPCS: 76705